=== PATIENT | female | born 1995 | race Caucasian/White ===

== ENCOUNTER 2018-09-02 13:29 | Outpatient (CLI) | payer OTHER ==
[2018-09-02] MEDS ORDERED: HYDR-3241 PO (14:02)
[2018-09-02] MEDS ORDERED: CYCL-259 PO (14:02)
[2018-09-02] MEDS ORDERED: BENTYL PO (14:09)
== END 2018-09-02 23:59 | disposition home or self-care (01) ==
LOC: STAR 13:29
PROVIDERS: ATTEND Orthopaedic Surgery
DX: Z02.9 Encounter for administrative examinations, unspecified (principal)

== ENCOUNTER 2018-09-13 06:59 | Day surgery (SDC) | payer OTHER ==
[2018-09-02 13:55] VITALS: BP 114/81
[~2018-09-13] VITALS: Ht 157.5 cm; Wt 67.4 kg
[~2018-09-13 06:59] MED LIST: BENTYL PO; CYCL-259 PO; EPINEPHRINE TOPICAL SOLN 1 MG/ML, 30ML ONE; HYDR-3241 PO
[2018-09-13] MEDS ORDERED: LACTATED RINGERS 1,000 ML IV SCH (07:20)
[2018-09-13] MEDS ORDERED: GABAPENTIN 300 MG CAPSULE PO ONE (07:30)
[2018-09-13] MEDS ORDERED: SCOPOLAMINE PATCH, 1.5MG PATCH.TD72 TD ONE (07:30)
[2018-09-13] MEDS ORDERED: ACETAMINOPHEN 500 MG TABLET PO ONE (07:30)
[2018-09-13 07:36] VITALS: BP 114/81
[2018-09-13] MEDS ORDERED: MIDAZOLAM 1 MG/ML, 2ML ONE (07:36)
[2018-09-13] MEDS ORDERED: FENTANYL PF 250 MCG/5ML ONE (07:36)
[2018-09-13 07:55] LABS: HCG UR SG 1.023 (1.003-1.030)
[2018-09-13] MEDS ORDERED: ROCURONIUM 10 MG/ML,10ML ONE (09:03)
[2018-09-13] MEDS ORDERED: NEOSTIGMINE 1 MG/ML, 10ML ONE (09:03)
[2018-09-13] MEDS ORDERED: SUCCINYLCHOLINE 20 MG/ML, 10ML ONE (09:03)
[2018-09-13] MEDS ORDERED: DEXAMETHASONE 4 MG/ML, 1ML ONE (09:03)
[2018-09-13] MEDS ORDERED: CEFAZOLIN 1,000 MG ONE (09:03)
[2018-09-13] MEDS ORDERED: PROPOFOL 10 MG/ML, 20ML ONE (09:03)
[2018-09-13] MEDS ORDERED: GLYCOPYRROLATE 0.2MG/1ML, 5ML ONE (09:03)
[2018-09-13] MEDS ORDERED: ROPIvacaine/PF 0.5%, 30 ML INFIL ONE (09:46)
[2018-09-13] MEDS ORDERED: OXYcodone 5 MG/5 ML ORAL.SOL UDC PO PRN (10:00)
[2018-09-13] MEDS ORDERED: ALBUTEROL SULFATE 2.5 MG/3 ML NPPB PRN (10:00)
[2018-09-13] MEDS ORDERED: KETOROLAC 30 MG/1 ML IV PRN (10:00)
[2018-09-13] MEDS ORDERED: METOCLOPRAMIDE 5 MG/ML, 2ML IV PRN (10:00)
[2018-09-13] MEDS ORDERED: MEPERIDINE/PF 25MG/0.5ML IVPush PRN (10:00)
[2018-09-13] MEDS ORDERED: HYDROmorphone 1 MG/ML, 1ML IV PRN (10:00)
[2018-09-13] MEDS ORDERED: PROMETHAZINE 25 MG/ML, 1ML IV PRN (10:00)
[2018-09-13] MEDS ORDERED: LABETALOL 5MG/ML, 20ML IV PRN (10:00)
[2018-09-13] MEDS ORDERED: hydrALAzine 20 MG/ML, 1ML IV PRN (10:00)
[2018-09-13] MEDS ORDERED: ONDANSETRON 2MG/ML, 2ML IVPush PRN (10:00)
[2018-09-13] MEDS ORDERED: KETOROLAC 30 MG/1 ML ONE (10:40)
[2018-09-13] MEDS ORDERED: FENTANYL PF 100 MCG/2ML ONE (10:47)
[2018-09-13] MEDS ORDERED: OXYcodone 5 MG/5 ML ORAL.SOL UDC ONE (10:47)
[2018-09-13] MEDS ORDERED: ONDANSETRON 2MG/ML, 2ML ONE (10:47)
[2018-09-13] MEDS: FENTANYL PF 100 MCG/2ML IV PRN ×2 (10:49→11:00)
[2018-09-13] MEDS ORDERED: PROMETHAZINE 25 MG/ML, 1ML ONE (10:51)
[2018-09-13] MEDS ORDERED: ROPIvacaine/PF 0.5%, 30 ML ONE (10:56)
[2018-09-13] MEDS ORDERED: KETOROLAC 30 MG/1 ML IVPush SCH (11:00)
[2018-09-13] MEDS ORDERED: HYDROmorphone 2 MG/ML, 1ML ONE (11:03)
== END 2018-09-13 16:00 | disposition home or self-care (01) ==
LOC: OUT 06:59
PROVIDERS: ATTEND Orthopaedic Surgery
DX: S73.192A Other sprain of left hip, initial encounter (principal); M25.852 Other specified joint disorders, left hip; M65.852 Other synovitis and tenosynovitis, left thigh; Z72.89 Other problems related to lifestyle; Z88.8 Allergy status to other drugs, medicaments and biological substances; X58.XXXA Exposure to other specified factors, initial encounter; Y93.89 Activity, other specified; Y92.89 Other specified places as the place of occurrence of the external cause; Y99.8 Other external cause status
CPT/HCPCS: 29862; 29863; 73501; 76000; 81025; J0330; J0690; J1100; J1170; J1885; J2250; J2550; J2704; J2710; J2795; J3010; J3490; J7120